=== PATIENT | female | born 1980 | race Caucasian/White ===

== ENCOUNTER 2021-10-08 09:28 | Outpatient (CLI) | payer BC, SELFPAY ==
[2021-10-08 09:47] LABS: Basophils Absolute Auto 0.04 K/mm3 (0.00-0.10); Basophils Percent Auto 0.6 % (0.0-1.0); Eosinophils Absolute Auto 0.14 K/mm3 (0.02-0.50); Eosinophils Percent Auto 2.1 % (1.0-6.0); Hematocrit 41.6 % (35.0-49.0); Hemoglobin 13.7 g/dL (12.0-15.0); Immature Granulocyte Absolute 0.01 K/mm3 (0.00-0.00); Immature Granulocyte Percent A 0.1 % (0.0-0.0); Lymphocytes Absolute Auto 1.83 K/mm3 (1.10-4.50); Lymphocytes Percent Auto 27.3 % (18.0-42.0); Mean Corpuscular HGB Conc 32.9 g/dL (32.0-36.0); Mean Corpuscular Hemoglobin 30.9 pg (27.0-31.0); Mean Corpuscular Volume 93.9 fL (78.0-102.0); Mean Platelet Volume 9.2 fl (9.2-11.8); Monocytes Absolute Auto 0.51 K/mm3 (0.10-0.90); Monocytes Percent Auto 7.6 % (2.0-11.0); Neutrophils Absolute Auto 4.2 K/mm3 (1.7-7.2); Neutrophils Percent Auto 62.3 % (50.0-70.0); Platelet Count Result 285 K/mm3 (150-420); Red Blood Count 4.43 M/mm3 (4.20-5.40); White Blood Count 6.7 K/mm3 (4.8-10.8)
[2021-10-08 10:57] LABS: Alanine Aminotransferase 62 U/L (14-59); Albumin Level 3.8 g/dL (3.4-5.0); Alkaline Phosphatase 70 U/L (46-116); Anion Gap 9 mmol/L (8-16); Aspartate Amino Transferase 34 U/L (15-37); Bilirubin,Total 0.3 mg/dL (0.00-1.00); Blood Urea Nitrogen 16 mg/dL (7-18); Calcium 9.5 mg/dL (8.5-10.1); Carbon Dioxide 29 mmol/L (21-32); Chloride 103 mmol/L (98-108); Estimated Glomerular Filt Rate > 60; Glucose 82 mg/dL (70-99); Osmolality Calculated 292 mOsm/kg (285-295); Potassium 4.4 mmol/L (3.5-5.1); Sodium 141 mmol/L (136-145); Thyroid Stimulating Hormone 1.79 uIU/mL (0.36-3.74); Total Protein 7.1 g/dL (6.4-8.2); Vitamin B12 1072 pg/mL (193-986)
[2021-10-08 11:04] LABS: Folic Acid > 20.0 ng/mL (8.6->20)
[2021-10-11 10:52] LABS: Vitamin D 25 Hydroxy 71 ng/mL (30-100)
== END 2021-10-08 09:29 | disposition home or self-care (01) ==
LOC: CHSLAB 09:31
PROVIDERS: PCP Nurse Practitioner Family; Visit Provider Nurse Practitioner Family
DX: E66.3 Overweight (principal); F41.8 Other specified anxiety disorders
CPT/HCPCS: 36415; 80053; 82306; 82607; 82746; 84443; 85025

== ENCOUNTER 2021-10-10 10:22 | Outpatient (CLI) | payer BC, SELFPAY ==
--- NOTE | ~2021-10-10 | US_ITS ---
EXAMINATION: US soft tissue LE DATE: 10/10/2021 10:52 INDICATION: Left knee pain. Assess for popliteal cyst. TECHNIQUE: Multiple grayscale and Doppler ultrasound images of the region of concern at the posterior and lateral left knee were obtained. COMPARISON: None FINDINGS: No Alvares's cyst or other abnormal masses or fluid collections identified at the popliteal fossa the l eft knee. The left popliteal and gastrocnemius veins are patent and compressible. IMPRESSION: 1. Normal study. No Alvares's cyst. Reviewed, dictated and finalized at location H. 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
== END 2021-10-10 10:23 | disposition home or self-care (01) ==
LOC: CHSIMG 10:24
PROVIDERS: PCP Nurse Practitioner Family; Visit Provider Nurse Practitioner Family
DX: M25.562 Pain in left knee (principal)
CPT/HCPCS: 76882

== ENCOUNTER 2021-11-14 14:19 | Outpatient (CLI) | payer BC, SELFPAY ==
--- NOTE | ~2021-11-14 | MM_ITS ---
EXAMINATION: MM screening robyn BI w isaac HISTORY: Baseline screening mammogram TECHNIQUE: Craniocaudal and mediolateral oblique 3-D tomosynthesis images were obtained and synthetic 2-D images were generated. CAD analysis was submitted and interpreted. COMPARISON: None, baseline BREAST PARENCHYMAL COMPOSITION: There are scattered areas of fibroglandular density. FINDINGS: There is no evidence of suspicious mass, calcification, or architectural distortion to sugg est malignancy in either breast. IMPRESSION: 1. No mammographic evidence of malignancy. 2. Recommend routine screening mammography in one year. BI-RADS Category 1: Negative Reviewed, dictated and finalized at location A. IRONER HAND
== END 2021-11-14 14:20 | disposition home or self-care (01) ==
LOC: ANHIMG 14:21
PROVIDERS: PCP Nurse Practitioner Family; Visit Provider Obstetrics & Gynecology
DX: Z12.31 Encounter for screening mammogram for malignant neoplasm of breast (principal)
CPT/HCPCS: 77063; 77067

== ENCOUNTER 2022-04-08 09:14 | Outpatient (CLI) | payer BC, SELFPAY ==
[2022-04-10 10:01] LABS: TB Skin Test Erythema 2 mm; TB Skin Test Induration 0 mm (0-10); TB Skin Test Interpretation Negative (Negative); TB Skin Test Site Left Arm
== END 2022-04-08 09:15 | disposition home or self-care (01) ==
LOC: CHSLAB 09:16
PROVIDERS: PCP Nurse Practitioner Family; Visit Provider Nurse Practitioner Family
DX: Z11.1 Encounter for screening for respiratory tuberculosis (principal)
CPT/HCPCS: 36415; 86580

== ENCOUNTER 2022-09-11 10:11 | Outpatient (CLI) | payer OTHER, SELFPAY ==
[2022-09-11 11:08] LABS: Thyroid Stimulating Hormone Reflex 1.58 u/IU/mL (0.36-3.74)
== END 2022-09-11 10:12 | disposition home or self-care (01) ==
LOC: CHSLAB 10:14
PROVIDERS: PCP Family Medicine; Visit Provider Family Medicine
DX: F41.8 Other specified anxiety disorders (principal); E11.9 Type 2 diabetes mellitus without complications
CPT/HCPCS: 36415; 84443

== ENCOUNTER 2023-05-05 08:26 | Outpatient (CLI) | payer OTHER, SELFPAY ==
[2023-05-05 08:38] LABS: Hemoglobin 13.6 g/dL (12.0-15.0); Mean Corpuscular HGB Conc 32.4 g/dL (32.0-36.0); Mean Corpuscular Hemoglobin 30.2 pg (27.0-31.0); Mean Corpuscular Volume 93.3 fL (78.0-102.0); Mean Platelet Volume 8.9 fl (9.2-11.8); Platelet Count Result 296 K/mm3 (150-420); Red Cell Distribution Width 12.8 % (11.6-14.4)
[2023-05-05 09:17] LABS: Potassium 4.4 mmol/L (3.5-5.1); Sodium 142 mmol/L (136-145)
[2023-05-05 09:18] LABS: Alanine Aminotransferase 71 U/L (14-59); Albumin Level 3.4 g/dL (3.4-5.0); Alkaline Phosphatase 65 U/L (46-116); Anion Gap 4 mmol/L (8-16); Aspartate Amino Transferase 20 U/L (15-37); Bilirubin,Total 0.3 mg/dL (0.00-1.00); Blood Urea Nitrogen 23 mg/dL (7-18); Calcium 8.9 mg/dL (8.5-10.1); Carbon Dioxide 31 mmol/L (21-32); Chloride 107 mmol/L (98-108); Cholesterol 192 mg/dL (0-200); Estimated Glomerular Filt Rate > 60; Glucose 98 mg/dL (70-99); HDL Direct 59 mg/dL (40-60); LDL Cholesterol Calculated 119 mg/dL (<130); Osmolality Calculated 297 mOsm/kg (285-295); Total Protein 6.4 g/dL (6.4-8.2); Triglycerides 69 mg/dL (0-150)
[2023-05-05 09:51] LABS: Thyroid Stimulating Hormone Reflex 1.91 u/IU/mL (0.36-3.74)
[2023-05-09 06:41] LABS: FSH 2.4 mIU/mL (***)
== END 2023-05-05 08:27 | disposition home or self-care (01) ==
LOC: CHSLAB 08:28
PROVIDERS: PCP Nurse Practitioner Family; Visit Provider Nurse Practitioner Family
DX: R63.5 Abnormal weight gain (principal)
CPT/HCPCS: 36415; 80053; 80061; 83001; 83002; 84443; 85027

== ENCOUNTER 2023-06-17 15:55 | Outpatient (CLI) | payer OTHER, SELFPAY ==
--- NOTE | ~2023-06-17 | MM_ITS ---
EXAMINATION: MM screening robyn BI w isaac HISTORY: Screening mammogram TECHNIQUE: Craniocaudal and mediolateral oblique 3-D tomosynthesis images were obtained and synthetic 2-D images were generated. CAD analysis was submitted and interpreted. COMPARISON: 11/14/2021 BREAST PARENCHYMAL COMPOSITION:There are scattered areas of fibroglandular density. FINDINGS: No suspicious mass, calcification, or architectural distortion are identified in either sebastien ast to suggest malignancy. There has been no suspicious interval change. IMPRESSION: No mammographic evidence of malignancy. Recommend routine screening mammography in one year. BI-RADS Category 1: Negative Reviewed, dictated and finalized at location .
== END 2023-06-17 15:56 | disposition home or self-care (01) ==
PROVIDERS: PCP Nurse Practitioner Family; Visit Provider Obstetrics & Gynecology
DX: Z12.31 Encounter for screening mammogram for malignant neoplasm of breast (principal)
CPT/HCPCS: 77063; 77067

== ENCOUNTER 2024-04-12 10:38 | Outpatient (CLI) | payer OTHER, SELFPAY ==
[2024-04-12 10:54] LABS: Basophils Absolute Auto 0.05 K/mm3 (0.00-0.10); Basophils Percent Auto 0.5 % (0.0-1.0); Eosinophils Absolute Auto 0.38 K/mm3 (0.02-0.50); Hematocrit 40.4 % (35.0-49.0); Hemoglobin 13.7 g/dL (12.0-15.0); Immature Granulocyte Absolute 0.02 K/mm3 (0.00-0.00); Immature Granulocyte Percent A 0.2 % (0.0-0.0); Lymphocytes Absolute Auto 2.46 K/mm3 (1.10-4.50); Lymphocytes Percent Auto 25.7 % (18.0-42.0); Mean Corpuscular HGB Conc 33.9 g/dL (32-36); Mean Corpuscular Hemoglobin 30.4 pg (27.0-31.0); Mean Corpuscular Volume 89.8 fL (78.0-102.0); Mean Platelet Volume 9.2 fl (9.2-11.8); Monocytes Absolute Auto 0.56 K/mm3 (0.10-0.90); Monocytes Percent Auto 5.9 % (2.0-11.0); Neutrophils Percent Auto 63.7 % (50.0-70.0); Platelet Count Result 317 K/mm3 (150-420); Red Cell Distribution Width 12.1 % (11.6-14.4); White Blood Count 9.6 K/mm3 (4.8-10.8)
[2024-04-12 11:03] LABS: Hemoglobin A1C 5.6 % (<5.7)
[2024-04-12 11:28] LABS: Alanine Aminotransferase 65 U/L (14-59); Albumin Level 3.6 g/dL (3.4-5.0); Alkaline Phosphatase 58 U/L (46-116); Anion Gap 11 mmol/L (4-12); Aspartate Amino Transferase 28 U/L (15-37); Bilirubin,Total 0.2 mg/dL (0.00-1.00); Blood Urea Nitrogen 16 mg/dL (7-18); Calcium 9.1 mg/dL (8.5-10.1); Carbon Dioxide 25 mmol/L (21-32); Chloride 104 mmol/L (98-108); Cholesterol 163 mg/dL (0-200); Estimated Glomerular Filt Rate > 60; Glucose 100 mg/dL (70-99); HDL Direct 51 mg/dL (40-60); LDL Cholesterol Calculated 99 mg/dL (<130); Osmolality Calculated 291 mOsm/kg (285-295); Potassium 4.4 mmol/L (3.5-5.1); Sodium 140 mmol/L (136-145); Thyroid Stimulating Hormone 2.62 uIU/mL (0.36-3.74); Total Protein 6.7 g/dL (6.4-8.2); Triglycerides 63 mg/dL (0-150)
[2024-04-13 12:04] LABS: Insulin Level Total 12.6 uIU/mL
[2024-04-29 22:13] LABS: Free Insulin 9.6 uIU/mL (1.5-14.9)
== END 2024-04-12 10:39 | disposition home or self-care (01) ==
LOC: CHSLAB 10:40
PROVIDERS: PCP Nurse Practitioner Family; Visit Provider Nurse Practitioner Family
DX: Z00.00 Encounter for general adult medical examination without abnormal findings (principal)
CPT/HCPCS: 36415; 80053; 80061; 83036; 83525; 83527; 84443; 85025

== ENCOUNTER 2024-08-03 16:02 | Outpatient (CLI) | payer OTHER, SELFPAY ==
--- NOTE | ~2024-08-03 | MM_ITS ---
EXAMINATION: MM screening robyn BI w isaac HISTORY: Screening TECHNIQUE: Craniocaudal and mediolateral oblique 3-D tomosynthesis images were obtained and synthetic 2-D images were generated. CAD analysis was submitted and interpreted. COMPARISON: Comparison to multiple prior studies sequentially, with oldest reviewed study dated 11/14. BREAST PARENCHYMAL COMPOSITION: Not dense: There are scattered areas of fibroglandular density. FINDINGS: There is no evidence of suspicious mass, calcification, or architectural distortion to sugg est malignancy in either breast. There has been no suspicious interval change. IMPRESSION: 1. No mammographic evidence of malignancy. 2. Recommend routine screening mammography in one year. BI-RADS Category 1: Negative Reviewed, dictated and finalized at location B.
== END 2024-08-03 16:03 | disposition home or self-care (01) ==
LOC: ANHIMG 16:03
PROVIDERS: PCP Nurse Practitioner Family; Visit Provider Obstetrics & Gynecology
DX: Z12.31 Encounter for screening mammogram for malignant neoplasm of breast (principal)
CPT/HCPCS: 77063; 77067

== ENCOUNTER 2024-10-06 07:37 | Outpatient (CLI) | payer OTHER, SELFPAY ==
[2024-10-06 08:14] LABS: Basophils Percent Auto 0.5 % (0.2-1.2); Eosinophils Absolute Auto 0.2 K/mm3 (0-0.3); Eosinophils Percent Auto 2.5 % (0-4.4); Hematocrit 42.1 % (37.0-47.0); Hemoglobin 13.9 g/dL (12.0-15.0); Immature Granulocyte Absolute 0.02 K/mm3 (0.00-0.031); Immature Granulocyte Percent A 0.2 % (0-0.5); Lymphocytes Absolute Auto 1.49 K/mm3 (0.9-3.2); Lymphocytes Percent Auto 16.8 % (18.3-44.2); Mean Corpuscular Volume 93.8 fl (80-100); Mean Platelet Volume 9.2 fl (7.4-10.4); Monocytes Absolute Auto 0.8 K/mm3 (0.1-0.6); Monocytes Percent Auto 8.7 % (2.6-8.5); Neutrophils Absolute Auto 6.3 K/mm3 (1.3-6.7); Neutrophils Percent Auto 71.3 % (45.5-73.1); Platelet Count Result 282 k/mm3 (150-375); Red Blood Count 4.49 M/mm3 (4.2-5.4); Red Cell Distribution Width 12.5 % (11.5-14.5); White Blood Count 8.9 K/mm3 (4.5-10.0)
== END 2024-10-06 07:38 | disposition home or self-care (01) ==
PROVIDERS: PCP Nurse Practitioner Family; Visit Provider Obstetrics & Gynecology
DX: N92.6 Irregular menstruation, unspecified (principal)
CPT/HCPCS: 36415; 85025; 86850; 86900; 86901

== ENCOUNTER 2024-10-08 01:06 | Day surgery (SDC) | payer OTHER, SELFPAY ==
[2024-09-29 14:51] VITALS: BMI 35.0
--- NOTE | 2024-09-29 15:00 | PC.NURSE ---
Report to the Outpatient Waiting Room, entrance under the green pavilion located off [facility], at time _1130_ on date _[id number]_. Planned Procedure Time: _130pm_.? Time changes happen often and if your time is changed the preop area will call you the afternoon before. - You and your visitor will be asked to self-screen and do not enter if you have any COVID symptoms. Please call surgeon if you need to reschedule. - A mask is optional within the hospital at this time. Patients may have clear liquids (water, carbonated beverages, clear teas, apple juice) until 3 hours prior to surgery with a maximum of 20 ounces. - No food from midnight until time of surgery and no smoking. This includes no chewing gum, candy or mints. Take only the following medications with a SIP of water on the morning of surgery: ____Bupropion and Buspirone DO NOT STOP ANY OF YOUR OTHER PRESCRIPTION MEDICATIONS PRIOR TO SURGERY EXCEPT THE FOLLOWING Medications to discontinue per physician ____Multivitamin Date to take last hwaz__[id number]____ Please no make-up, nail japanese, hairspray, perfume, deodorant, or body powder the day of surgery.? No jewelry (including any body piercings) or valuables the day of surgery, leave them at home.? Please take a shower or bath the night before, or the morning of, surgery with an antibacterial soap.? Wear comfortable, loose fitting clothing. - Jewelry must be removed prior to entering the operating room.? Rings and piercings that are not removed may be cut off. - The hospital will not accept responsibility for valuables.? - Please leave all valuables, including medications, at home the day of surgery. If you are going home after surgery, a licensed guard driver must drive you home.? - NO public transportation without another adult if you receive anesthesia. - We recommend that an adult stay with you for 24 hours following discharge. - We also recommend that you do not drive, make important decision, drink alcoholic beverages, or take any drugs that were not prescribed by your health care provider for at least 24 hours after your discharge time. Follow any additional instructions given to you from your surgeon. Telephone instructions given to Duncan__and asked if any additional questions and then verbalized understanding. Patient advised to call surgeon office or pre surgery nurse liaison [phone] if any additional questions.
--- NOTE | 2024-10-05 12:22 | P.HP_ITS ---
H&P: HPI History of Present Illness Date/Time: 10/05/24 12:22 Chief Complaint: excessive heavy bleeding with enlarged uterus with fibroids and stress urinary incontinence Narrative: this is a 43-year-old multiparous patient for hysterectomy bilateral salpingectomy robotically as tension-free vaginal tape. She has excessive bleeding fibroids painful discomfort stress urinary incontinence risks and benefits of the procedure reviewed including but exclusive , aspiration pneumonia, bleeding, transfusion, perforation injury to bowel, bladder, ureters, or other internal organs with need for open laparotomy. She received the ACOG handout entitled hysterectomy as well as de David handout. She receives the tension-free did vaginal tape handout. She had all questions answered. She asked to proceed Review of Systems Review of Systems: All systems reviewed & are unremarkable except as noted in HPI and below PMFSH Past Medical History Medical History Sinusitis Left knee pain Anxiety with depression 2010 EARLE (generalized anxiety disorder) Overweight Surgical History Surgical History History of dilation and curettage (~05/2011) History of knee surgery Left Meniscus Repair 2006 History of bilateral tubal ligation 07-09-2017 Family History Family History Father Acute myocardial infarction Social History Social History Smoking status: Never smoker Alcohol intake: current Drinks per week: 4 Alcohol use details: social Substance use: never Substance use type: does not use Lack of Transportation: No Lack of Food: Never True Current Housing: I Have Housing Concerned About Future Housing: No Difficulty Paying Gas/Electric Bills: No Difficulty Paying for Meds: No Currently Unemployed: No Education: Master's Degree or Higher Difficulty w/ Childcare or Family Care: No Living arrangements: with family Additional living arrangements comments: . 3 Children. 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 Gender identity (if verbalized by the patient): Female Spiritual care concerns: No Meds Home Medications and Allergies Home Medications ?Medication ?Instructions ?Recorded ?Confirmed ?Type bupropion HCl 150 mg 24 hr tablet, See Rx Instructions .Route 04/09/24 09/29/24 Rx extended release .COMPLEX #90 tabs buspirone 5 mg tablet See Rx Instructions .Route 07/23/24 09/29/24 Rx .COMPLEX #60 tabs multivitamin 1 tablet PO DAILY 09/29/24 09/29/24 History oxybutynin chloride 10 mg 10 mg PO DAILY 09/29/24 09/29/24 History tablet,extended release 24 hr Allergies Allergy/AdvReac Type Severity Reaction Status Date / Time ondansetron Allergy Intermediate ITCHING,ERVIN Verified 09/29/24 14:49 SEA ampicillin Allergy Unknown unknown Verified 09/29/24 14:49 Exam Const: General: cooperative, healthy appearing and comfortable Nutritional Appearance: average body habitus Orientation/consciousness: oriented to person, oriented to place and oriented to time HENMT: Head: normal to inspection Resp: Effort & Inspection: normal respiratory effort Cardio: Rate: regular rate Rhythm: regular rhythm Heart sounds: S1 normal heart sound present and S2 normal heart sound present GI: Inspection: normal to inspection : External Female Exam: normal external appearance Speculum Exam - Vagina: normal appearance of the vagina and other ( urethra hyper reactive with Valsalva maneuver) Speculum Exam - Cervix: normal appearance of the cervix Bimanual exam- vagina & uterus: enlarged Bimanual Exam- Adnexa, other: normal adnexae Assessment and Plan Assessment and plan (1) Enlarged uterus: Code(s): N85.2 - Hypertrophy of uterus Status: Acute (2) Uterine fibroid: Code(s): D25.9 - Leiomyoma of uterus, unspecified Status: Acute (3) Overflow stress urinary incontinence in female: Code(s): N39.3 - Stress incontinence (female) (male); N39.490 - Overflow incontinence Status: Acute (4) Excessive bleeding: Code(s): R58 - Hemorrhage, not elsewhere classified Status: Acute Plan proceed with robotic total vaginal hysterectomy bilateral salpingectomy will also perform tension-free vaginal tape with cystoscopy
[2024-10-08] VITALS (10 sets, daily range): BP systolic 98–116; BP diastolic 55–76; PULSE 50–80; RESP 10–20; TEMP 36.6–37; O2SAT 95–100
--- NOTE | 2024-10-08 06:31 | WPDHPUPDATE1 ---
History and Physical Update Update Date/Time: 10/08/24 06:31 History and Physical has been reviewed, including an updated exam of the patient. There are NO changes in the patient's condition. Risks, benefits, and alternatives have been discussed and questions answered. Patient agrees to proceed with procedure.
[2024-10-08] MEDS: KETOROLAC 15 MG/ML VIAL (*BKC) IV PUSH (06:45)
[2024-10-08] MEDS: LACTATED RINGERS 1,000 ML 30 ML IV CONT ×2 (06:45→09:17)
[2024-10-08] MEDS: ACETAMINOPHEN 500 MG TABLET 1000 MG PO ×3 (06:45→18:57)
--- NOTE | 2024-10-08 06:57 | P.PNAN_ITS ---
Anes - Initial Pre Proc Eval Procedure: Operation Date: 10/08/24 07:30 Proposed Procedures p Robotic Assisted Total Vaginal Hysterectomy, Bilateral Salpingectomy, - Martin Lyn MD s Tension Free Vaginal Taping - Martin Lyn MD Date/Time: 10/08/24 06:57 Surgeon: Martin Lyn MD Pre Op Diagnosis: enlarged uterus, fibroids, heavy bleeding, JOAN Patient Data Age: 43 Gender: F Height: 1.73 m Weight: 106.7 kg Last Vital Signs Temp 36.6 C 10/08/24 06:45 Pulse 65 10/08/24 06:45 Resp 14 10/08/24 06:45 BP 115/76 10/08/24 06:45 Pulse Ox 99 10/08/24 06:45 O2 Del Method Room Air 10/08/24 06:45 Allergies Allergy/AdvReac Type Severity Reaction Status Date / Time ondansetron Allergy Intermediate ITCHING,ERVIN Verified 09/29/24 14:49 SEA ampicillin Allergy Unknown unknown Verified 09/29/24 14:49 Home Medications ?Medication ?Instructions ?Recorded ?Confirmed ?Type bupropion HCl 150 mg 24 hr tablet, See Rx Instructions .Route 04/09/24 09/29/24 Rx extended release .COMPLEX #90 tabs buspirone 5 mg tablet See Rx Instructions .Route 07/23/24 09/29/24 Rx .COMPLEX #60 tabs multivitamin 1 tablet PO DAILY 09/29/24 10/08/24 History oxybutynin chloride 10 mg 10 mg PO DAILY 09/29/24 09/29/24 History tablet,extended release 24 hr hydrocodone 5 mg-acetaminophen 325 1 tablet PO Q4H PRN pain #20 tabs 10/08/24 Rx mg tablet Patient hx anesthesia problems: none Family hx anesthesia problems: none Results Review: All pre-operative results and documents have been reviewed as part of the pre- operative evaluation. [facility] Past Medical History Medical History Sinusitis Left knee pain Anxiety with depression 2010 EARLE (generalized anxiety disorder) Overweight Surgical History Surgical History History of dilation and curettage (~05/2011) History of knee surgery Left Meniscus Repair 2006 History of bilateral tubal ligation 07-09-2017 Family History Family History Father Acute myocardial infarction Social History Social History Smoking status: Never smoker Alcohol intake: current Drinks per week: 4 Alcohol use details: social Substance use: never Substance use type: does not use Lack of Transportation: No Lack of Food: Never True Current Housing: I Have Housing Concerned About Future Housing: No Difficulty Paying Gas/Electric Bills: No Difficulty Paying for Meds: No Currently Unemployed: No Education: Master's Degree or Higher Difficulty w/ Childcare or Family Care: No Living arrangements: with family Additional living arrangements comments: . 3 Children. 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 Gender identity (if verbalized by the patient): Female Spiritual care concerns: No Anes - Eval Final PreProcedure Day of Procedure 10/08/24 06:57 Patient weight: obese Heart: regular rate and rhythm Lungs: clear to auscultation Airway: Mallampati scale class II Neurological: alert and oriented Last oral intake: >/= 8 hours ASA classification: II Emergent: no Anesthetic plan: proceed Anesthesia type and monitoring: general ETT and standard monitoring Results Review: All pre-operative results and documents have been reviewed as part of the pre- operative evaluation. Informed Consent: The patient's anesthetic plan and its attendant risks and benefits were discussed with the patient/family/POA. Questions were solicited and answers provided to the satisfaction of the patient/family/POA.
[2024-10-08] MEDS: ceFAZolin 2 GM/D5W 50 ML 2 GM/50 ML BAG IVPB (07:25)
--- NOTE | 2024-10-08 09:09 | P.OP_ITS ---
Procedure Note - Detailed Date of Procedure 10/08/24 Pre-op Diagnosis enlarged uterus, fibroids, heavy bleeding, JOAN Post-op Diagnosis Same Procedure Performed Robotic total vaginal hysterectomy bilateral salpingectomy with cystoscopy and tension-free vaginal tape Surgeon Martin Lyn MD Anesthesia General Indications 43-year-old female with excessive heavy bleeding pelvic pain stress urinary Findings Markedly enlarged uterus with tortuous blood vessels. Normal-appearing ovaries. tubes status post tubal ligation Description of Procedure Patient was prepped draped in the sterile fashion placed dorsal lithotomy position. Excellent trach was placed. Anterior lip of the cervix grasped with single-tooth tenaculum. Uterus sounded to 12cm. Serial dilatation fragmented dilators performed followed by passage of the 10. PETER and the 3. 0.5 cold cup. Next the 16 Togolese catheter was placed in the bladder to drain clear urine. The weighted speculum was remove the single-tooth was removed and the gloves were changed. A supraumbilical incision made the Veress needle passed in the abdomen. Abdomen filled with CO2 gas [id number]. The 8mm trocar advanced under direct visualization assuring no injury. Multiple adhesions were seen left lateral quadrant right lateral quadrant incisions were made and 8mm trocars advanced under direct visualization. Right upper quadrant incision made the 8mm trocar advanced under direct visualization assuring no injury. The robot was docked. Attention was turned to the residential counselor. The left round ligament was grasped, burned, cut. Anterior bladder flap was formed by sharply dissecting the peritoneum and reflecting the bladder caudally to the opposite round ligament which was clamped, burned, cut. The tubes were status post tubal ligation. The distal portion of the left was still present and this was passed through the right upper quadrant. The stump remaining on the op on that same side was dissected to the origin uterus in similar fashion on the right the stump of right tube was dissected away from ovary. The left utero-ovarian ligament was skeletonized to conserve the left ovary this was clamped, burned, cut and brought to level of previously cut round ligament. In similar fashion conserving right ovary the utero-ovarian ligament was clamped, burned, cut brought to the level of previously cut round cardinal broad ligaments on the lef t were then skeletonized clamping burning cutting until multiple large tortuous blood vessels were seen along the uterus. These were individually clamped, cut. Was a fair back bleeding due to the large uterus. In similar fashion on right the cardinal broad ligaments were skeletonized clamping burning cutting until the vessels could be seen right these 2 markedly tortuous. These were individually clamped,, cut. Blanching the uterus was noted colpotomy incision was made. Uterus cervix tubes through. The vagina then closed with continuous running 0V lock from lateral edge to lateral edge back to midline. Irrigation undertaken until clear and [place] term was placed over raw surface area. The robot was undocked after hemostasis was assured and the gas removed from the abdomen. The trocars removed incisions closed with 4 Monocryl glue. Attention was then turned to the next portion procedure. Weighted speculum placed in posterior fornix vagina. A 18 Togolese catheter was swapped out placed in the bladder a mid ureter res suburethral incision was made in lateral bladder space is entered by blunt dissection the the urethral guide was placed in catheter. Urethra shivani did laterally in the right space (centered at 45 up to 35 through tissue skin the urethra was retracted to the opposite side in the left lateral bladder space was 45 degree upto35? fascia and skin the catheter was removed and this 70degree cystoscope inserted no injury was seen and ureters freely the catheter was then replaced again. This was brought to the tightness of an PI clamped and pulled up plastic removed from TVT device. These were then cut at the surface of mons pubis. The vaginal incision was closed with running 3-0 chromic. Blood loss estimated about 500cc for entire procedure. All sponge, needle, instrument counts were correct. There were no immediate complications Estimated Blood Loss 500 Drains No Packing No Pathology Yes Complications No immediate complications Condition Stable Disposition PACU
--- NOTE | 2024-10-08 09:15 | PM.DS ---
DS: Admitting Diagnosis Discharge Date 10/09/2024 Admitting Diagnosis Excessive bleeding/uterine fibroids/enlarged uterus/stress urinary incontinence DS: Discharge Diagnosis Discharge Diagnosis (1) Overflow stress urinary incontinence in female: Code(s): N39.3 - Stress incontinence (female) (male); N39.490 - Overflow incontinence Status: Acute (2) Excessive bleeding: Code(s): R58 - Hemorrhage, not elsewhere classified Status: Acute (3) Uterine fibroid: Code(s): D25.9 - Leiomyoma of uterus, unspecified Status: Acute (4) Enlarged uterus: Code(s): N85.2 - Hypertrophy of uterus Status: Acute DS: Summary Hospital Course Reason for hospitalization: Patient was admitted for robotic total vaginal hysterectomy and bilateral salpingectomy as well as cystoscopy and tension-free vaginal tape on 10/08/2024. Hospital Course: Patient's hospital course unremarkable she remained afebrile. She was up voiding difficulty, eating diet ambulating, and generally without complaints. Time Spent with Patient Time attestation: Total time spent providing and/or coordinating discharge services: Exam Const: General: cooperative, healthy appearing and comfortable Nutritional Appearance: average body habitus Orientation/consciousness: oriented to person, oriented to place and oriented to time Resp: Effort & Inspection: normal respiratory effort Cardio: Rate: regular rate Rhythm: regular rhythm Heart sounds: S1 normal heart sound present and S2 normal heart sound present GI: Inspection: normal to inspection and incision (Wounds are clean dry and) Auscultation: normal bowel sounds DS: Data Data Completed and Pending Pending studies at discharge: Pending at discharge 10/08/24 08:29 Surgical [PTH] Routine Discharge Plan Discharge Patient Disposition: Home, Self-Care Discharge Instructions: Hysterectomy Discharge Instructions (Vaginal, Laparoscopic, or Abdominal) - Okay to shower in 24 hours, avoid baths/pools for 6-8 weeks - Nothing in the vagina for 6-8 weeks (no tampons or intercourse) - Limit lifting to less than 10-15 pounds and strenuous exercise for 6-8 weeks Incision Care - If you have a dressing, remove when instructed: ?- Cheema/clear dressings should be removed by day 7 unless it get wet/starts peeling off ? - White tape/gauze dressings should be removed/exchanged daily - If no dressing: ? - Keep your incision open to air ? - Do not place any ointments/creams/solutions unless specified by your Doctor ? - It is okay to shower daily and let soap/water run over your incision, do not scrub your incision ? - Keep your incision clean and dry, okay to place gauze/paper in your skin fold to keep sweat out - Dermabond (purple skin glue) may start peeling around 10-14 days, okay to remove after 14 days - If you see a stitch (string), do not pull/tug on it, leave it alone Encouraged Activities/OTC Medications that are safe (Unless your doctor specifically told you not to take/do them, and you're not allergic) - Colace 1 capsule twice daily or Miralax daily to prevent constipation - Tylenol 1000mg every 6-8 hours as needed for pain - Ibuprofen 600mg every 6-8 hours as needed for pain - You can use heating pads or ice packs as needed if it helps with discomfort - Getting up/walking short distances multiple times daily-- we do not recommend bed rest - Stay hydrated; try to drink 64oz/ 2L daily of water, smaller meals are okay (decreased appetite is common after anesthesia) CALL YOUR DOCTOR/GO TO THE EMERGENCY ROOM IF YOU: - Are having heavy vaginal bleeding (saturating 2 Kotex pads an hour) - Cannot keep food/liquids down - Have not urinated in 6 hours or are unable to - Have not had a bowel movement in 5 days - Have a concerning rash that might be an allergic reaction - Have a fever greater than 100.4 degrees Fahrenheit - Significant pain not relieved with your prescribed medications +/- OTC meds - Significant redness, drainage, or bleeding from your incision - If you had a hysterectomy and are having abnormal vaginal discharge and/or vaginal bleeding Nothing in the vagina for 6 weeks. Call or return if temperature above 100.4? F, increased abdominal pain, increased vaginal bleeding or any new problems. Patient Language: Cape Verdean Stand Alone Forms: General Discharge Instructions Follow-up/Referrals: Martin Rivera MD [Physician] - 2 Weeks Discharge Medications: New hydrocodone-acetaminophen 5-325 mg tablet 1 tablet PO Q4H PRN (Reason: pain) Qty: 20 0RF Continued bupropion HCl 150 mg tablet extended release 24 hr See Rx Instructions .ROUTE .COMPLEX Qty: 90 2RF Dose Instruction: TAKE ONE TABLET BY MOUTH DAILY Rx Instructions: TAKE ONE TABLET BY MOUTH DAILY oxybutynin chloride 10 mg tablet extended release 24hr 10 mg PO DAILY multivitamin Tablet 1 tablet PO DAILY buspirone 5 mg tablet See Rx Instructions .ROUTE .COMPLEX Qty: 60 0RF Dose Instruction: TAKE ONE TABLET BY MOUTH TWICE A DAY Rx Instructions: TAKE ONE TABLET BY MOUTH TWICE A DAY
[2024-10-08] MEDS: DEXTROSE 5%/LACTATED RINGERS 1,000 ML 125 ML IV CONT (10:55)
[2024-10-08] MEDS: oxyCODONE HCL (*CRX) 5 MG TAB IR 10 MG PO (12:04)
[2024-10-08] MEDS: SIMETHICONE 80 MG TAB.CHEW PO ×2 (12:04→17:15)
[2024-10-08] MEDS: KETOROLAC 30 MG/ML VIAL (*BKC) IV PUSH ×2 (12:57→18:58)
[2024-10-08] MEDS: DOCUSATE SODIUM 100 MG CAPSULE PO (17:15)
[2024-10-09] MEDS: ACETAMINOPHEN 500 MG TABLET 1000 MG PO ×2 (01:15→08:11)
[2024-10-09] MEDS: KETOROLAC 30 MG/ML VIAL (*BKC) IV PUSH (01:26)
[2024-10-09 01:31] VITALS: BP 117/65; PULSE 67; RESP 16; TEMP 36.4; O2SAT 96
[2024-10-09 04:22] VITALS: BP 114/64; PULSE 71; RESP 14; TEMP 36.9; O2SAT 97
[2024-10-09 04:50] LABS: Basophils Percent Auto 0.2 % (0.2-1.2); Eosinophils Percent Auto 0.3 % (0-4.4); Hematocrit 35.1 % (37.0-47.0); Hemoglobin 11.5 g/dL (12.0-15.0); Immature Granulocyte Absolute 0.07 K/mm3 (0.00-0.031); Immature Granulocyte Percent A 0.5 % (0-0.5); Lymphocytes Absolute Auto 1.82 K/mm3 (0.9-3.2); Lymphocytes Percent Auto 14.2 % (18.3-44.2); Mean Corpuscular HGB Conc 32.8 g/dl (32-36); Mean Corpuscular Hemoglobin 30.7 pg (26-34); Mean Corpuscular Volume 93.9 fl (80-100); Mean Platelet Volume 9.5 fl (7.4-10.4); Monocytes Absolute Auto 0.7 K/mm3 (0.1-0.6); Monocytes Percent Auto 5.4 % (2.6-8.5); Neutrophils Absolute Auto 10.2 K/mm3 (1.3-6.7); Neutrophils Percent Auto 79.4 % (45.5-73.1); Platelet Count Result 223 k/mm3 (150-375); Red Blood Count 3.74 M/mm3 (4.2-5.4); Red Cell Distribution Width 12.6 % (11.5-14.5); White Blood Count 12.8 K/mm3 (4.5-10.0)
[2024-10-09] MEDS: ENOXAPARIN 40 MG/0.4 ML SYRINGE SUB-Q (08:11)
[2024-10-09] MEDS: DOCUSATE SODIUM 100 MG CAPSULE PO (08:12)
[2024-10-09] MEDS: SIMETHICONE 80 MG TAB.CHEW PO (08:12)
[2024-10-09] MEDS: IBUPROFEN 600 MG TABLET PO (08:12)
--- NOTE | 2024-10-09 09:32 | PM.GYNPNOP ---
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 P: Home to f/u 2 weeks. (2) Uterine fibroid: Code(s): D25.9 - Leiomyoma of uterus, unspecified Status: Acute (3) Enlarged uterus: Code(s): N85.2 - Hypertrophy of uterus Status: Acute (4) JOAN (stress urinary incontinence, female): Code(s): N39.3 - Stress incontinence (female) (male) Status: Acute Postoperative Procedures: Procedures Operation Date: 10/08/24 07:30 Actual Procedure Side Surgeon p Robotic Assisted Total Vaginal Hysterectomy, Bilateral Salpingectomy, Bilateral Martin Lyn MD s Tension Free Vaginal Taping Not Applicable Martin Lyn MD Time Spent With Patient Time with patient: less than 15 minutes PILOT PLANT RESEARCH TECHNICIAN- PN:Subj Post-Op Subjective Date/time seen: 10/09/24 09:32 Interval history: Pain OK. Tolerating diet. Voiding. Would like to go home. Exam Narrative: AVSS I/O OK ABD soft, nontender. Incisions c/d/i. EXT nontender PILOT PLANT RESEARCH TECHNICIAN - PN: Obj Data Vital Signs Vital Signs: Vital Signs - 24 hr 10/08/24 09:45 10/08/24 09:55 10/08/24 10:00 Temperature Pulse Rate 53 L 53 L Respiratory Rate 10 L 12 Blood Pressure 116/73 112/68 Pulse Oximetry 100 100 97 Oxygen Delivery Simple Face Mask Room Air Room Air Oxygen Flow Rate 6 10/08/24 10:10 10/08/24 10:25 10/08/24 15:11 Temperature 37.0 C 36.6 C 36.6 C Pulse Rate 53 L 50 L 80 Respiratory Rate 12 16 20 Blood Pressure 116/72 104/68 104/55 L Pulse Oximetry 97 95 98 Oxygen Delivery Room Air Oxygen Flow Rate 10/08/24 15:11 10/08/24 19:07 10/08/24 19:36 Temperature 37.0 C Pulse Rate 64 Respiratory Rate 16 Blood Pressure 98/61 L Pulse Oximetry 96 Oxygen Delivery Room Air Room Air Oxygen Flow Rate 10/09/24 01:31 10/09/24 04:22 Temperature 36.4 C 36.9 C Pulse Rate 67 71 Respiratory Rate 16 14 Blood Pressure 117/65 114/64 Pulse Oximetry 96 97 Oxygen Delivery Oxygen Flow Rate Intake/Output Intake/Output: Intake & Output 10/06/24 10/07/24 10/08/24 10/09/24 23:59 23:59 23:59 23:59 Intake Total 2150 Output Total 900 500 Balance 1250 -500 Meds/Results Medications: Active Medications Generic Name Dose Route Start Last Admin Trade Name Freq PRN Reason Stop Dose Admin Acetaminophen 1,000 mg 10/08/24 12:00 10/09/24 08:11 Acetaminophen 500 Mg Tablet PO 1,000 mg Q6HR [place] Administration Docusate Sodium 100 mg 10/08/24 17:00 10/09/24 08:12 Docusate Sodium 100 Mg Capsule PO 100 mg BID [place] Administration Enoxaparin Sodium 40 mg 10/09/24 09:00 10/09/24 08:11 Enoxaparin 40 Mg/0.4 Ml Syringe SUB-Q 40 mg DAILY [place] Administration Dextrose/Lactated Ringer's 1,000 mls @ 125 mls/hr 10/08/24 10:13 10/09/24 01:26 Dextrose 5%/Lactated Ringers IV CONT Not Given .Q8H [place] Ibuprofen 600 mg 10/09/24 06:00 10/09/24 08:12 Ibuprofen 600 Mg Tablet PO 600 mg Q6HR [place] Administration Naloxone HCl 0.1 mg 10/08/24 10:13 Naloxone Hcl 0.4 Mg/Ml Vial IV PUSH Q2M PRN Respiratory rate less than 10 Oxycodone HCl 5 mg 10/08/24 10:13 Oxycodone Hcl (*Crx) 5 Mg Tab Ir PO Q4H PRN Pain Rated 4-6 Oxycodone HCl 10 mg 10/08/24 10:13 10/08/24 12:04 Oxycodone Hcl (*Crx) 5 Mg Tab Ir PO 10 mg Q6H PRN Administration Pain Rated 7-10 Simethicone 80 mg 10/08/24 12:00 10/09/24 08:12 Simethicone 80 Mg Tab.Chew PO 80 mg TIDWM [place] Administration Labs 10/09/24 04:26 Labs: Laboratory Results - last 24 hr 10/09/24 04:26 WBC 12.8 H RBC 3.74 L Hgb 11.5 L Hct 35.1 L MCV 93.9 MCH 30.7 MCHC 32.8 RDW 12.6 Plt Count 223 MPV 9.5 Immature Gran % (Auto) 0.5 Neut % (Auto) 79.4 H Lymph % (Auto) 14.2 L [place] % (Auto) 5.4 Eos % (Auto) 0.3 Baso % (Auto) 0.2 Lymph # (Auto) 1.82 [place] # (Auto) 0.7 H Eos # (Auto) 0.0 Baso # (Auto) 0.0 Abs Immat Gran (auto) 0.07 H Absolute Neuts (auto) 10.2 H Absolute Nucleated RBC 0.000 Nucleated RBC % 0.0
--- NOTE | 2024-10-09 09:34 | P.DS_ITS ---
DS: Admitting Diagnosis Discharge Date 10/09/24 Admitting Diagnosis Symptomatic fibroid uterus Stress urinary incontinence DS: Discharge Diagnosis Discharge Diagnosis (1) JOAN (stress urinary incontinence, female): Code(s): N39.3 - Stress incontinence (female) (male) Status: Acute (2) Excessive bleeding: Code(s): R58 - Hemorrhage, not elsewhere classified Status: Acute (3) Uterine fibroid: Code(s): D25.9 - Leiomyoma of uterus, unspecified Status: Acute (4) Enlarged uterus: Code(s): N85.2 - Hypertrophy of uterus Status: Acute DS: Summary Hospital Course Hospital Course: Admitted for scheduled surgery. Did well postop and was able to go home on POD1. Time Spent with Patient Time attestation: Total time spent providing and/or coordinating discharge services: DS: Data Data Completed and Pending Pending studies at discharge: Pending at discharge 10/08/24 08:29 Surgical [PTH] Routine Labs on day of discharge: Labs from last 24 hours 10/09/24 04:26 WBC 12.8 H RBC 3.74 L Hgb 11.5 L Hct 35.1 L MCV 93.9 MCH 30.7 MCHC 32.8 RDW 12.6 Plt Count 223 MPV 9.5 Immature Gran % (Auto) 0.5 Neut % (Auto) 79.4 H Lymph % (Auto) 14.2 L Ward % (Auto) 5.4 Eos % (Auto) 0.3 Baso % (Auto) 0.2 Lymph # (Auto) 1.82 Ward # (Auto) 0.7 H Eos # (Auto) 0.0 Baso # (Auto) 0.0 Abs Immat Gran (auto) 0.07 H Absolute Neuts (auto) 10.2 H Absolute Nucleated RBC 0.000 Nucleated RBC % 0.0 Discharge Plan Discharge Patient Disposition: Home, Self-Care Discharge Instructions: Nothing in the vagina for 6 weeks. Call or return if temperature above 100.4? F, increased abdominal pain, increased vaginal bleeding or any new problems. Patient Language: Trinidadian Stand Alone Forms: General Discharge Instructions Follow-up/Referrals: Martin Rivera MD [Physician] - 2 Weeks Discharge Medications: New hydrocodone-acetaminophen 5-325 mg tablet 1 tablet PO Q4H PRN (Reason: pain) Qty: 20 0RF Continued bupropion HCl 150 mg tablet extended release 24 hr See Rx Instructions .ROUTE .COMPLEX Qty: 90 2RF Dose Instruction: TAKE ONE TABLET BY MOUTH DAILY Rx Instructions: TAKE ONE TABLET BY MOUTH DAILY oxybutynin chloride 10 mg tablet extended release 24hr 10 mg PO DAILY multivitamin Tablet 1 tablet PO DAILY buspirone 5 mg tablet See Rx Instructions .ROUTE .COMPLEX Qty: 60 0RF Dose Instruction: TAKE ONE TABLET BY MOUTH TWICE A DAY Rx Instructions: TAKE ONE TABLET BY MOUTH TWICE A DAY
[2024-10-09 10:52] VITALS: PULSE 71; RESP 14; O2SAT 97
== END 2024-10-09 10:10 | disposition home or self-care (01) ==
LOC: ANHSURGERY 06:31 → ANHOB2 10:15
PROVIDERS: PCP Nurse Practitioner Family; Visit Provider Obstetrics & Gynecology
PROC: (CPT 57288; principal; 2024-10-08 07:30)
PROC: 0TSD0ZZ Reposition Urethra, Open Approach (ICD-10-PCS; CPT 57288; 2024-10-08 07:30)
DX: D25.1 Intramural leiomyoma of uterus (principal); N84.1 Polyp of cervix uteri; N93.9 Abnormal uterine and vaginal bleeding, unspecified; N39.3 Stress incontinence (female) (male); N73.6 Female pelvic peritoneal adhesions (postinfective); F41.1 Generalized anxiety disorder; F32.A Depression, unspecified; E66.9 Obesity, unspecified; Z68.35 Body mass index [BMI] 35.0-35.9, adult
CPT/HCPCS: 57288; 58552; S2900; 36415; 85025; 88307; 99199; A9270; C1771; J0330; J0690; J1100; J1171; J1650; J1885; J2003; J2250; J2704; J3010; J7120; J7121

== ENCOUNTER 2025-05-16 07:33 | Outpatient (CLI) | payer OTHER, SELFPAY ==
--- NOTE | ~2025-05-16 | XR_ITS ---
EXAM: XR ankle RT min 3V, XR foot RT min 3V DATE: 05/16/2025 08:18 HISTORY: M25.571 - Pain in right ankle and joints of right foot . COMPARISON: None available. FINDINGS: Normal mineralization. No fracture or dislocation. No lytic or blastic lesion. Joint space s are maintained. Minimal Achilles enthesopathy. No erosion or periosteal change. Soft tissues within normal limits. IMPRESSION: No acute osseous finding in the right ankle or foot. Reviewed, dictated and finalized at location K. IMPRESSION: No acute osseous finding in the right ankle or foot.
--- NOTE | ~2025-05-16 | XR_ITS ---
XR knee RT min 4V 05/16/2025 08:18 Indication: Right knee pain Procedure: 5 views right knee Comparison: 04/30/2007 Findings: Increasing opacification of ossicles adjacent to the tibial tuberosity, consistent with seq uela of prior Bayron-Schlatter disease. No acute fracture or traumatic malalignment. No joint effusio n. No foreign bodies. Impression: 1: No acute bone or joint abnormality. Reviewed, dictated and finalized at location B. Impression: 1: No acute bone or joint abnormality.
--- OUTSIDE RECORDS SUMMARY | 2025-05-16 07:37 | XMS_ITS | Clinical Summary ---
Author Organization [facility] Address [address] [place] [id number] Care Team Providers Care Bore Miner Operator Name Role Phone None, Provider MD Primary Care Provider Unavaila ble Medications venlafaxine XR 75 MG 24 hr capsule Take 1 capsule by mouth daily. 10/12/2020 Active Active Problems Problem Noted Date Diagnosed Date Varicose veins of left lower extremity with pain 10/30/2020 Family History Medical History Relation Comments AAA Father Relation Status Comments Father (Age 65) Mother Alive Social History Tobacco Use Types Packs/Day Years Used Date Smoking Tobacco: Never Smokeless Tobacco: Never Alcohol Use Standard Drinks/Week Comments Never 0 (1 standard drink = 0.6 oz pur e alcohol) AUDIT-C Answer Date Recorded Q1: How often do you have a drink containing alc ohol? Never 10/25/2020 Average Number of Drinks Not on file 021 Frequency of Binge Drinking Not on file 03/2021 Comments Unknown Sex and Gender Information Value Date Recorded Sex Assigned at Not on file Legal Sex Female 12:01 PM AESTHETICS INSTRUCTOR Gender Identity Not on file Sexual Orientation Not on file Last Filed Vital Signs Vital Sign Reading Time Taken Comments Blood Pressure 122/78 10/25/2020 1:53 PM AESTHETICS INSTRUCTOR Pulse 74 10/25/2020 1:53 PM AESTHETICS INSTRUCTOR Temperature - - Respiratory Rate - - Oxygen Saturation - - Inhaled Oxygen Concentration - - Weight 85.5 kg (188 lb 9.6 oz) 10/25/2020 1:53 P M AESTHETICS INSTRUCTOR Height 172.7 cm (5' 8) 10/25/2020 1:53 PM AESTHETICS INSTRUCTOR Body Mass Index 28.68 10/25/2020 1:53 PM AESTHETICS INSTRUCTOR Plan of Treatment Health Maintenance Due Date Last Done Comments Cervical Cancer Screening Pa p Smear (Age 30 to 64) Every 3 Years 1980 Annual Physical 1983 Hepatitis C 1998 DTaP, Tdap and Td Vaccines ( 1 - Tdap) 1999 Hepatitis B Vaccines (1 of 3 - 19+ 3-dose series) 1999 HPV Vaccines (1 - 3-dose SCD M series) 2007 Cervical Cancer Screening Pa p with HPV Testing (Age 30 to 64) Every 5 Years 2010 Cervical Cancer Screening with HPV 2010 Mammogram Screening 2020 COVID-19 Vaccine ( - 2023-2 5 season) 2024 Meningococcal B Vaccine Aged Out No l onger eligible based on patient's age to complete this topic Meningococcal Vaccine Aged Out No lisa amber eligible based on patient's age to complete this topic Pneumococcal Vaccine: Pediat rics (0 to 5 Years) and At-Risk Patients (6 to 49 Years) Aged Out No longer eligible b ased on patient's age to complete this topic RSV Immunizations Under 20 Months Aged Out No longer eligible based on patient's age to complete this topic Insurance [employer] Care Teams Bore Miner Operator Relationship Specialty Start Date End Date None, Provider, PCP - General 10/30/20
== END 2025-05-16 07:34 | disposition home or self-care (01) ==
LOC: CHSIMG 07:35
PROVIDERS: PCP Nurse Practitioner Family; Visit Provider Orthopaedic Surgery
DX: M25.571 Pain in right ankle and joints of right foot (principal); M79.671 Pain in right foot; M25.561 Pain in right knee
CPT/HCPCS: 73564; 73610; 73630